=== PATIENT | male | born 1995 | race African-American/Black ===

== ENCOUNTER 2017-12-03 11:29 | Emergency (ER) | payer OTHER, SELFPAY ==
[~2017-12-03] VITALS: Ht 177.8 cm; Wt 90.7 kg
[2017-12-03 11:25] VITALS: BP 147/88
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
[2017-12-03 13:57] VITALS: BP 117/61
[2017-12-03 14:16] VITALS: BP 117/61
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
== END 2017-12-03 14:18 ==
LOC: EDBD 11:29 → EMR 12:47
DX: R22.0 Localized swelling, mass and lump, head (principal); Z91.011 Allergy to milk products; Y04.2XXA Assault by strike against or bumped into by another person, initial encounter; Y93.9 Activity, unspecified; Y92.9 Unspecified place or not applicable
CPT/HCPCS: 70486; 99284